=== PATIENT | female | born 1970 | race Two or more races ===

== ENCOUNTER 2018-03-23 08:44 | Outpatient (CLI) | payer OTHER | END 2018-03-23 08:54 | disposition home or self-care (01) | LOC: SONOGRAMA 08:44 | DX: R22.0 Localized swelling, mass and lump, head (principal) ==

== ENCOUNTER → 2019-04-17 06:00 | Outpatient (CLI) | payer OTHER ==
[~2019-04-17] VITALS: Ht 160 cm; Wt 56.2 kg
[~2019-04-17 06:00] MED LIST: PROGESTERONE200 MG PO
== END | disposition home or self-care (01) ==
LOC: EKG 06:00 → ADM 14:30 → EDSTATUS 14:30 → SURH 04-24 11:30 → EDSTATUS 04-24 14:30 → EDBD 04-24 14:30 → SURH 04-24 14:30
DX: D12.0 Benign neoplasm of cecum (principal); R59.0 Localized enlarged lymph nodes; D37.4 Neoplasm of uncertain behavior of colon; C18.0 Malignant neoplasm of cecum; Z01.810 Encounter for preprocedural cardiovascular examination

== ENCOUNTER 2019-04-23 07:40 | Day surgery (SDC) | payer OTHER | END 2019-04-23 11:40 | disposition home or self-care (01) | LOC: EDBD → AMB-ENDOS 07:40 | DX: D12.0 Benign neoplasm of cecum (principal) ==

== ENCOUNTER 2019-09-12 10:45 | Inpatient (IN) | payer OTHER ==
[~2019-09-12] VITALS: Ht 160 cm; Wt 56.2 kg
[2019-09-12] MEDS ORDERED: MULTIPLE VITAM1 EACH PO (14:51)
[2019-09-20] MEDS ORDERED: PERCOCET 5-3251 EACH PO (09:05)
== END 2019-09-20 11:18 | disposition home or self-care (01) | DRG 331 ==
LOC: SURG 09-18 07:00 → O/R 09-18 08:08 → SURG 09-18 10:45
PROVIDERS: ADMIT Surgery
PROC: 0DBH4ZZ Excision of Cecum, Percutaneous Endoscopic Approach (ICD-10-PCS; principal; 2019-09-18 07:00)
DX: D12.0 Benign neoplasm of cecum (principal); K63.89 Other specified diseases of intestine; J32.8 Other chronic sinusitis; M54.10 Radiculopathy, site unspecified

== ENCOUNTER 2020-11-03 09:14 | Day surgery (SDC) | payer OTHER ==
[~2020-11-03 09:14] MED LIST changes: +MULTIPLE VITAM1 EACH PO; +PERCOCET 5-3251 EACH PO
== END 2020-11-03 16:15 | disposition home or self-care (01) ==
LOC: AMB-ENDOS 09:14
PROVIDERS: ATTEND Surgery
DX: K62.89 Other specified diseases of anus and rectum (principal); Z20.822 Contact with and (suspected) exposure to COVID-19